=== PATIENT | male | born 2000 | race Caucasian/White ===

== ENCOUNTER 2024-02-09 05:57 | Emergency (ER) | payer BC, SELFPAY ==
[2024-02-09 06:07] VITALS: BP 172/82
[2024-02-09 06:16] VITALS: BMI 26.8
--- NOTE | 2024-02-09 06:18 | EDRN ---
Pt says he felt like someone was sitting on his chest, squeezing him since 0300. This woke pt. Pt with hx atrial tachycardia and feels past 6 months his heart has been 'way out of rhythm.' No chest pain, pt says he has anxiety and feels anxious.
Pt adds he felt it was hard to take a deep breath. Pt took his regular clonidine this morning. Pt denies abd pain, n/v/d/c, weakness, dizziness, urinary symptoms, fever/chills/cough.
[2024-02-09 06:23] VITALS: BP 128/76
[2024-02-09 06:25] VITALS: BP 128/76
[2024-02-09 07:00] VITALS: BP 127/74
--- NOTE | 2024-02-09 07:07 | ED.GENMED ---
History of Present Illness
General
Chief Complaint: Cardiac Symptoms
Source: patient
Time Seen by Provider: 02/09/24 06:52
History of Present Illness
History of Present Illness:
23yoM with a history of atrial tachycardia presenting for evaluation of chest discomfort. Patient reports he has been having palpitations for the past 6 months. He states it feels like he is 'out of rhythm' with extra beats. He started having
central chest pressure this morning around 3 AM. He denies any overt pain. He states it felt like he could not take a deep enough breath. He believes his symptoms are due to anxiety as he has been under a lot of stress recently. Patient is
feeling better currently. He denies any fevers, cough, nausea, vomiting, syncope. His sister had a history of a fast heart rate and underwent a procedure but he is unsure of the details. Patient was last seen by a medical technologist prn at the age of 16. No
tobacco use.
Past History
Past History
ED Past Medical History: Arrthythmia (Atrial tachycardia) and Psychiatric (Anxiety)
ED Past Surgical History: None
Social History
Tobacco: Non-smoker
Alcohol: Occasional
Personal: Single
Living: with family
Phy Exam
General Physical Exam
General Presentation: well appearing and no apparent distress
General age: appears stated age
General Skin: warm and dry
General Habitus: normal
General Mental: alert
General Hydration: appears well hydrated
Cardiovascular Exam
Cardiovascular Exam: regular rate/rhythm, no edema and no murmur
Pulmonary Exam
Pulmonary Exam: lungs clear, no respiratory distress, no crackles and no wheezing
[place] Coma Scale
Eye Opening: Spontaneous
Verbal Response: Oriented
Motor Response: Obeys Commands
GCS Total Score: 15
Skin Exam
Skin Exam: normal color and warm/dry
Psychiatric Exam
Psychiatric Exam: normal mood/affect
Course
Orders/Labs/Results
Orders:
Orders
02/09/24 06:09
Electrocardiogram (*1) Urgent
Reason for Study: Chest Pain
EKG- Treatment ONCE
02/09/24 07:06
Cardiac Monitoring- Treatment ONCE
02/09/24 07:07
CR Chest - 2 Views Urgent
Comment:
Reason For Exam: SOB
02/09/24 07:30
Complete Blood Count/With Diff Urgent
Comprehensive Metabolic Panel Urgent
Magnesium Urgent
TSH Reflex To Free T4 Urgent
Troponin I Urgent
Abnormal Lab Results
02/09/24
07:30
MCH 31.3 H pg
(27.0-31.0)
Abs Immat Gran (auto) 0.1 H 10^3/uL
(0-0.05)
Immature Gran % 0.7 H %
(0-0.5)
Glucose 101 H mg/dl
(70-99)
02/09/24 07:30
02/09/24 07:30
Vital Signs
Initial and Last Documented VS:
Initial Vital Signs
Temp Pulse Resp BP Pulse Ox
97.4 F 86 22 172/82 82
02/09/24 06:07 02/09/24 06:07 02/09/24 06:07 02/09/24 06:07 02/09/24 06:07
Last Documented Vital Signs
Temp Pulse Resp BP Pulse Ox
97.4 F 79 16 124/75 99
02/09/24 06:07 02/09/24 07:00 02/09/24 07:00 02/09/24 08:45 02/09/24 08:45
MDM/Problems Addressed
Differential Diagnosis Includes:
23yoM here with chest pressure and SOB that began this morning. Also c/o palpitations x 6 months. Hx of atrial tachycardia but has not seen a medical technologist prn in several years. Feeling improved currently. He was hypertensive in triage. Repeat BP normal.
Remainder of vitals stable. He is well appearing in no distress. Exam is reassuring. Differential diagnosis includes but is not limited to: arrhythmia, electrolyte abnormality, thyroid dysfunction, pericarditis, myocarditis, musculoskeletal,
pneumonia, less likely ACS
Initial ED plan: Place on property assessment monitor. Check cardiac labs, TSH, magnesium, EKG, and CXR.
*EKG
Interpreted by ED Provider?: Yes
EKG Intrepretation Date: 02/09/24
EKG Intrepretation Time: 07:10
Heart Rate: 106
Rate: tachycardiac
Rhythm: sinus
[place]: right axis deviation
Interval: normal interval
QRS Pattern: normal QRS
Ischemia: T-wave inversion (III and aVF)
*Critical Care Note
Total Time (30-74mins, 75-104mins- exclusive of procedures): Not Applicable
Update Note
Update Note:
EKG shows sinus tachycardia with nonspecific T wave changes. No ectopy and intervals are normal. Labs unremarkable including normal electrolytes, TSH, and troponin. CXR appears normal per my interpretation. On reassessment, he is now asymptomatic
without complaints. Vitals remain stable. No indication for admission. Advised f/u with cardiology given his history of atrial tachycardia. ED return precautions discussed. He expressed understanding and is agreeable to plan. Patient discharged in
stable condition.
ED Attending Note
-
Portions of this chart may have been created with voice recognition software.� Occasional wrong word or��sound alike� substitutions may have occurred due to the inherent limitations of voice recognition software.
Discharge Plan
Departure
Patient Disposition: Home (Routine Discharge)
Date of Disposition: 02/09/24
Time of Disposition: 09:01
Patient with high blood pressure during this ER visit?: No
Discharge Problem:
Chest pressure
Instructions: Chest Pain (DC)
Prescriptions:
No Action
clonidine HCl 0.1 mg Tablet
0.1 mg PO TID
escitalopram oxalate [Lexapro] 10 mg Tablet
10 mg PO DAILY
Referrals:
Micah Elizondo MD [Family Provider] -
Luis Rollins MD [Active] -
Activity Restrictions/Additional Instructions:
Please call today to schedule a follow-up with your family doctor and cardiology. Return to the ER with any new or worsening symptoms.
Interventions
Interventions:
*Risk Screen - Suicide Last Done: 02/09/24 06:07
*General Assessment Last Done: 02/09/24 06:16
*Neglect/Abuse Screening Last Done: 02/09/24 06:07
*ED COVID-19 Vaccine History Last Done: 02/09/24 06:16
ED- Pulmonary Assessment Last Done: 02/09/24 06:28
ED- Cardiac Assessment Last Done: 02/09/24 06:28
Discharge Date and Time
Print Language: IRISH
[2024-02-09 07:40] LABS: % Basophils 0.5 % (0-2); % Eosinophils 0.8 % (0-6); % Immature Granulocytes 0.7 % (0-0.5); % Lymphocytes 24.5 % (20.5-51.1); % Monocytes 7.7 % (1.7-9.3); % Neutrophils 65.8 % (42.2-75.2); Absolute Eosinophils 0.1 10^3/uL (0-0.7); Absolute Immature Granulocytes 0.1 10^3/uL (0-0.05); Absolute Lymphocytes 1.8 10^3/uL (1.2-3.4); Absolute Monocytes 0.6 10^3/uL (0.1-0.6); Absolute Neutrophils 4.9 10^3/uL (1.4-6.5); Hematocrit 47.7 % (39.0-52.0); Hemoglobin 17.1 g/dL (13.0-18.0); Mean Corp Hgb Conc. 35.8 g/dL (33.0-37.0); Mean Corpuscular Hgb 31.3 pg (27.0-31.0); Mean Corpuscular Volume 87.2 fL (80.0-94.0); Mean Platelet Volume 9.6 fL (7.4-10.4); Nucleated Red Blood Cells % 0 % (-); Platelet Count 246 10^3/uL (130-400); Red Blood Cell Count 5.47 10^6/uL (4.70-6.10); Red Cell Dist. Width 11.8 % (11.5-14.5); White Blood Cell Count 7.5 10^3/uL (4.8-10.8)
[2024-02-09 07:55] LABS: ALT (SGPT) 17 U/L (0-50); AST (SGOT) 24 U/L (17-59); Albumin 4.6 g/dl (3.5-5.0); Alkaline Phosphatase 52 U/L (38-126); Blood Urea Nitrogen 17 mg/dl (9-20); Calcium 9.8 mg/dl (8.4-10.2); Carbon Dioxide 30 mmol/L (22-30); Chloride 104 mmol/L (98-107); Estimated Creatinine Clearance > 125 ml/min; Glucose 101 mg/dl (70-99); Potassium 4.5 mmol/L (3.5-5.1); Sodium 139 mmol/L (135-145); Total Bilirubin 0.4 mg/dl (0.2-1.3); eGFR > 60.00
[2024-02-09 08:05] LABS: Troponin I < 0.012 ng/ml
[2024-02-09 08:45] VITALS: BP 124/75
[2024-02-09 09:00] VITALS: BP 128/69
== END 2024-02-09 09:08 | disposition home or self-care (01) ==
LOC: EMR 05:57
PROVIDERS: Physician Assistant; EMERGENCY PHYSICIAN Emergency Medicine; FAMILY PHYSICIAN Family Medicine
DX: R07.89 Other chest pain (principal); F41.9 Anxiety disorder, unspecified
CPT/HCPCS: 99283; 71046; 80053; 83735; 84443; 84484; 85025; 93005